=== PATIENT | female | born 1990 | race Caucasian/White ===

== ENCOUNTER 2016-09-12 12:06 | Emergency (ER) | payer OTHER ==
[~2016-09-12] VITALS: Ht 165.1 cm; Wt 65.8 kg
[~2016-09-12 12:06] MED LIST: CALCTAB5 PO; CHOL100010 PO; METH10TA6 PO; POTA8CAP6 PO; SELE1TAB5 PO
[2016-09-12 12:08] VITALS: TEMP 37.3; Ht 165.1 cm; Wt 65.8 kg
[2016-09-12] MEDS ORDERED: KETOROLAC TROMETHAMINE 30 MG/ML VIAL IV STA (12:28)
[2016-09-12] MEDS ORDERED: DiphenhydrAMINE HCL 50 MG/ML VIAL IV STA (12:28)
[2016-09-12] MEDS ORDERED: PROCHLORPERAZINE 5 MG/ML 2 ML VIAL IV STA (12:28)
[2016-09-12] MEDS ORDERED: SODIUM CHLORIDE 0.9% 1000ML 1,000 ML IV STA (12:28)
--- NOTE | 2016-09-12 12:28 | EMERGENCY ROOM VISIT NOTE ---
History Report prepared by Shayan: Kavin Lucas Under the Supervision of: Dr. Emory Guan M.D. First contact with patient: 12:15 Chief Complaint: ILLNESS Stated Complaint: BLURRY VISION/EYE FLUTTERS/SPACE OUT PAIN IN CHEST History of Present Illness The patient is a 26 year old female who presents to the Emergency Room with complaints of intermittent vision changes for a month. The patient has been experiencing what she calls "black floaters" in her right eye's vision. She has also been feeling very "spaced out." She has been having some left arm pain, neck pain, and nausea as well. The patient has a history of migraines. She claims that this does not feel like her normal migraine symptoms. She denies any fevers or rashes. She denies spending a significant amount of time outdoors. Source of History: patient Onset: a month ago Position: eye (right) Symptom Intensity: moderate Quality: other (Black Dots in Vision) Timing: intermittent Associated Symptoms: + nausea, + neck pain, No fevers, No rash Note: She is having left arm pain. Review of Systems See HPI for pertinent positives & negatives. A total of 10 systems reviewed and were otherwise negative. Past Medical & Surgical Medical Problems: (1) Urinary tract infection Family History Patient reports no known family medical history. Social History Smoking Status: Current Every Day Smoker Alcohol Use: occasionally Drug Use: marijuana Marital Status: , in relationship Housing Status: lives with family Occupation Status: unemployed Current/Historical Medications Scheduled Calcium (Caltrate), 600 MG PO DAILY Cholecalciferol (Vitamin D), 1,000 INTER.UNIT PO DAILY Methimazole (Methimazole), 2.5 MG PO DAILY Potassium Chloride (Klor-Con Ext Rel), Unknown Dose PO DAILY Selenium-Yeast (Selenium), 1 TAB PO DAILY Sulfa/Trimethoprim (Bactrim Ds 800MG/160MG), 1 TAB PO BID Allergies Coded Allergies: No Known Allergies (Unverified , 09/12/16) Physical Exam Vital Signs Date Time Temp Pulse Resp B/P Pulse Ox O2 Delivery O2 Flow Rate FiO2 09/12/16 14:57 85 18 103/68 99 Room Air 09/12/16 14:08 87 18 110/69 98 Room Air 09/12/16 13:09 99 Room Air 09/12/16 13:09 126 09/12/16 12:08 37.3 97 18 145/87 97 Room Air Physical Exam GENERAL: Patient is a healthy-appearing well-nourished HEAD: Normocephalic atraumatic EYES: Ocular movements intact pupils equal and react to light OROPHARYNX mucous membranes are moist no exudates present no erythema or edema present NECK: Supple no nuchal rigidity CHEST: Good equal expansion LUNGS: Clear and equal to auscultation CARDIAC: Normal S1 and S2 ABDOMEN: Soft nontender no guarding BACK: No CVA tenderness EXTREMITIES: No pain upon palpation normal muscle strength in all groups no clubbing cyanosis or edema NEURO: Patient is following commands is answering questions appropriately. Alert and oriented x3 Cranial Nerves 2-12 grossly intact Medical Decision & Procedures ER Provider Diagnostic Interpretation: Radiology results are stated below per my review and radiologist interpretation: CT HEAD WITHOUT CONTRAST (CT) CLINICAL HISTORY: Left-sided headache COMPARISON STUDY: No previous studies for comparison. TECHNIQUE: Axial CT of the brain is performed from the vertex to the skull base. IV contrast was not administered for this examination. CT DOSE: 537.48 mGy.cm FINDINGS: No intra or extra-axial mass lesions are visualized. There is no CT evidence of acute cortical infarction. There is no evidence of midline shift. There is no acute hemorrhage. No calvarial fractures are visualized. There is no evidence of pathologic ventricular dilatation. There is no evidence of acute sinusitis IMPRESSION: Normal noncontrast head CT. Electronically signed by: Oli Vivas M.D. 09/12/2016 1:22 PM Dictated Date/Time: 09/12/2016 1:20 PM Laboratory Results 09/12/16 13:00 Red Blood Count 4.83, Mean Corpuscular Volume 88.2, Mean Corpuscular Hemoglobin 31.7, Mean Corpuscular Hemoglobin Concent 35.9, Mean Platelet Volume 10.8, Neutrophils (%) (Auto) 65.7, Lymphocytes (%) (Auto) 26.3, Monocytes (%) (Auto) 6.6, Eosinophils (%) (Auto) 0.9, Basophils (%) (Auto) 0.2, Neutrophils # (Auto) 4.27, Lymphocytes # (Auto) 1.71, Monocytes # (Auto) 0.43, Eosinophils # (Auto) 0.06, Basophils # (Auto) 0.01 09/12/16 13:00 Test 1/14/17 13:00 White Blood Count 6.50 K/uL (4.8-10.8) Red Blood Count 4.83 M/uL (4.2-5.4) Hemoglobin 15.3 g/dL (12.0-16.0) Hematocrit 42.6 % (37-47) Mean Corpuscular Volume 88.2 fL (80-100) Mean Corpuscular Hemoglobin 31.7 pg (25-34) Mean Corpuscular Hemoglobin Concent 35.9 g/dl (32-36) Platelet Count 217 K/uL (130-400) Mean Platelet Volume 10.8 fL (7.4-10.4) Neutrophils (%) (Auto) 65.7 % Lymphocytes (%) (Auto) 26.3 % Monocytes (%) (Auto) 6.6 % Eosinophils (%) (Auto) 0.9 % Basophils (%) (Auto) 0.2 % Neutrophils # (Auto) 4.27 K/uL (1.4-6.5) Lymphocytes # (Auto) 1.71 K/uL (1.2-3.4) Monocytes # (Auto) 0.43 K/uL (0.11-0.59) Eosinophils # (Auto) 0.06 K/uL (0-0.5) Basophils # (Auto) 0.01 K/uL (0-0.2) RDW Standard Deviation 38.0 fL (36.4-46.3) RDW Coefficient of Variation 11.9 % (11.5-14.5) Immature Granulocyte % (Auto) 0.3 % Immature Granulocyte # (Auto) 0.02 K/uL (0.00-0.02) Urine Color DK YELLOW Urine Appearance CLEAR (CLEAR) Urine pH 5.5 (4.5-7.5) Urine Specific [place] 1.032 (1.000-1.030) Urine Protein NEG (NEG) Urine Glucose (UA) NEG (NEG) Urine Ketones TRACE (NEG) Urine Occult Blood NEG (NEG) Urine Nitrite NEG (NEG) Urine Bilirubin NEG (NEG) Urine Urobilinogen NEG (NEG) Urine Leukocyte Esterase TRACE (NEG) Urine WBC (Auto) 5-10 /hpf (0-5) Urine RBC (Auto) 0-4 /hpf (0-4) Urine Hyaline Casts (Auto) 1-5 /lpf (0-5) Urine Epithelial Cells (Auto) >30 /lpf (0-5) Urine Bacteria (Auto) 1+ (NEG) Urine Test NEG (NEG) Anion Gap 10.0 mmol/L (3-11) Est Creatinine Clear Calc Drug Dose 82.2 ml/min Estimated GFR () 97.2 Estimated GFR (Non- 83.8 BUN/Creatinine Ratio 14.7 (10-20) Calcium Level 9.1 mg/dl (8.5-10.1) Total Bilirubin 0.9 mg/dl (0.2-1) Direct Bilirubin 0.2 mg/dl (0-0.2) Aspartate Amino Transf (AST/SGOT) 13 U/L (15-37) Alanine Aminotransferase (ALT/SGPT) 22 U/L (12-78) Alkaline Phosphatase 46 U/L (45-117) Total Protein 7.9 gm/dl (6.4-8.2) Albumin 4.6 gm/dl (3.4-5.0) Lyme Disease IgG Antibody NEG (NEG) Lyme Disease IgM Antibody NEG (NEG) Monoscreen NEG (NEG) Labs reviewed by ED physician. Medications Administered Medications (Trade) Dose Ordered Sig/Devan Route Start Time Stop Time Status Last Admin Dose Admin Sodium Chloride (Nss 1000ml) 1,000 ml @ 999 mls/hr Q1H1M STAT IV 09/12/16 12:28 09/12/16 13:28 DC 09/12/16 12:49 999 MLS/HR Ketorolac Tromethamine (Toradol Inj) 30 mg NOW STAT IV 09/12/16 12:28 09/12/16 12:31 DC 09/12/16 12:47 30 MG Prochlorperazine Edisylate (Compazine Inj) 5 mg NOW STAT IV 09/12/16 12:28 09/12/16 12:31 DC 09/12/16 12:47 5 MG Diphenhydramine HCl (Benadryl Inj) 50 mg NOW STAT IV 09/12/16 12:28 09/12/16 12:31 DC 09/12/16 12:47 50 MG Dexamethasone Sodium Phosphate (Decadron Inj) 10 mg NOW ONCE IV 09/12/16 12:30 09/12/16 12:31 DC 09/12/16 12:48 10 MG Ceftriaxone Sodium (Rocephin Inj) 1 gm NOW STAT IV 09/12/16 13:21 09/12/16 13:23 DC 09/12/16 14:03 1 GM Trimethoprim/ Sulfamethoxazole (Septra Ds 800/ 160MG Tab) 1 tab NOW STAT PO 09/12/16 13:21 09/12/16 13:23 DC 09/12/16 14:03 1 TAB ED Course 1215: Past medical records reviewed. The patient was evaluated in room B4. A complete history and physical examination was performed. 1228: Benadryl Inj 50 mg IV, Compazine Inj 5 mg IV, Toradol Inj 30 mg IV, Sodium Chloride 1000 ml @ 999 mls/hr 1230: Decadron Inj 10 mg IV 1321: Trimethoprim/ Sulfamethoxazole 1 tab PO, Rocephin Inj 1 gm IV 1405: Upon reexamination the patient is resting comfortably. I discussed results and treatment plan with the patient. She verbalizes agreement and understanding. The patient is ready for discharge. Medical Decision Etiologies such as migraine headache, meningitis, sinusitis, CO exposure, ICH, SAH, infection, tumor, headache, sinus thrombosis, arterial dissection, as well as others were entertained. This is a healthy-appearing 26-year-old female who presents emergency department with what appears to be complaints of an ocular migraine. The patient reports that the symptoms have been ongoing for the past month. For this reason she was given normal saline bolus, Toradol, Compazine, Benadryl. Repeat examination revealed much improvement the patient's symptoms. The patient has normal CBC normal renal profile normal liver profile. She is not . CAT scan of her head does not reveal any evidence of acute process. I believe the patient as well as to be discharged home for follow-up with neurology. Patient was in agreement with the treatment plan. Impression Primary Impression: Urinary tract infection Additional Impression: Head pain Scribe Attestation The scribe's documentation has been prepared under my direction and personally reviewed by me in its entirety. I confirm that the note above accurately reflects all work, treatment, procedures, and medical decision making performed by me. Departure Information Dispostion Home / Self-Care Prescriptions Sulfa/Trimethoprim (Bactrim Ds 800MG/160MG) Tab 1 TAB PO BID for 7 Days, #14 TAB Prov: Emory Guan MD 09/12/16 Referrals No Doctor, Assigned (PCP) Sadie Kelly D.O. Forms HOME CARE DOCUMENTATION FORM, IMPORTANT VISIT INFORMATION, WORK / SCHOOL INSTRUCTIONS Patient Instructions Headache Pain, My [facility], Urinary Tract Infection - [facility] Additional Instructions Follow up with DR Boyer's office You have been examined and treated today on an emergency basis only. This is not a substitute for, or an effort to provide, complete comprehensive medical care. It is impossible to recognize and treat all injuries or illnesses in a single emergency department visit. It is therefore important that you follow up closely with your PCP. Call as soon as possible for an appointment. Thank you for your time and consideration. I look forward to speaking with you again soon. Please don't hesitate to call us if you have any questions. Problem Qualifiers Primary Impression: Urinary tract infection Urinary tract infection type: acute cystitis Hematuria presence: without hematuria Qualified Codes: N30.00 - Acute cystitis without hematuria Additional Impression: Head pain Headache type: unspecified Headache chronicity pattern: acute headache Intractability: not intractable Qualified Codes: R51 - Headache
[2016-09-12] MEDS ORDERED: DEXAMETHASONE SOD INJ 10 MG/ML VIAL IV ONE (12:30)
[2016-09-12 13:09] VITALS: O2SAT 99
[2016-09-12 13:09] LABS: BASO % 0.2 %; BASO ABS # 0.01 K/uL (0-0.2); COMPLETE YES; EOS % 0.9 %; HEMATOCRIT 42.6 % (37-47); IG% 0.3 %; LYMPH % 26.3 %; LYMPH ABS # 1.71 K/uL (1.2-3.4); MEAN CELL VOLUME 88.2 fL (80-100); MEAN CORPUSCULAR HEMOGLOBIN 31.7 pg (25-34); MEAN CORPUSCULAR HGB CONC 35.9 g/dl (32-36); MEAN PLATELET VOLUME 10.8 fL (7.4-10.4); MONO % 6.6 %; NEUT % 65.7 %; PLATELET COUNT 217 K/uL (130-400); RED BLOOD COUNT 4.83 M/uL (4.2-5.4)
[2016-09-12 13:15] LABS: URINE APPEARANCE CLEAR (CLEAR); URINE BILIRUBIN NEG (NEG); URINE COLOR DK YELLOW; URINE EPITHELIAL CELL AUTO >30 /lpf (0-5); URINE NITRITE NEG (NEG); URINE PH 5.5 (4.5-7.5); URINE SPECIFIC GRAVITY 1.032 (1.000-1.030); UROBILINOGEN NEG (NEG)
[2016-09-12 13:16] LABS: MANUAL MICROSCOPIC REQUIRED? NO; REVIEW REQ? NO
[2016-09-12] MEDS ORDERED: CEFTRIAXONE SOD INJ 1 GM ADDVIAL IV STA (13:21)
[2016-09-12] MEDS ORDERED: SULFAMETHOXAZOLE/TRIMETHOPRIM DS 800/160MG TAB PO STA (13:21)
[2016-09-12 13:24] LABS: CREATININE 0.95 mg/dl (0.60-1.20)
--- NOTE | 2016-09-12 13:24 | DIAGNOSTIC IMAGING REPORT ---
CT HEAD WITHOUT CONTRAST (CT) CLINICAL HISTORY: Left-sided headache COMPARISON STUDY: No previous studies for comparison. TECHNIQUE: Axial CT of the brain is performed from the vertex to the skull base. IV contrast was not administered for this examination. CT DOSE: 537.48 mGy.cm FINDINGS: No intra or extra-axial mass lesions are visualized. There is no CT evidence of acute cortical infarction. There is no evidence of midline shift. There is no acute hemorrhage. No calvarial fractures are visualized. There is no evidence of pathologic ventricular dilatation. There is no evidence of acute sinusitis IMPRESSION: Normal noncontrast head CT. Electronically signed by: Oli Vivas M.D. 09/12/2016 1:22 PM Dictated Date/Time: 09/12/2016 1:20 PM
[2016-09-12 13:25] LABS: BUN/CREATININE RATIO 14.7 (10-20); CALCIUM 9.1 mg/dl (8.5-10.1); POTASSIUM 3.6 mmol/L (3.5-5.1)
[2016-09-12] MEDS ORDERED: SULF800T23 PO (14:03)
[2016-09-12 14:17] LABS: LYME DISEASE AB IGG NEG (NEG)
[2016-09-12 14:18] LABS: LYME DISEASE AB IGM NEG (NEG)
[2016-09-12 14:57] VITALS: BP 103/68; PULSE 85; O2SAT 99
[2016-09-15 17:59] LABS: EBV EARLY ANTIGEN AB <0.91 INDEX; EPSTEIN BARR VIR CAPSID IGG 4.99 INDEX
== END 2016-09-12 15:13 | disposition home or self-care (01) ==
LOC: C.EDB 12:07
DX: N30.00 Acute cystitis without hematuria (principal); F17.210 Nicotine dependence, cigarettes, uncomplicated; R51 Headache

== ENCOUNTER → 2017-11-04 | Outpatient (CLI) | payer OTHER ==
[2017-11-04 16:38] LABS: BASO % 0.1 %; BASO ABS # 0.01 K/uL (0-0.2); EOS % 0.8 %; EOS ABS # 0.06 K/uL (0-0.5); HEMATOCRIT 37.8 % (37-47); HEMOGLOBIN 13.2 g/dL (12.0-16.0); IG# 0.01 K/uL (0.00-0.02); LYMPH % 29.9 %; LYMPH ABS # 2.25 K/uL (1.2-3.4); MEAN CELL VOLUME 87.3 fL (80-100); MEAN CORPUSCULAR HEMOGLOBIN 30.5 pg (25-34); MEAN CORPUSCULAR HGB CONC 34.9 g/dl (32-36); MEAN PLATELET VOLUME 10.1 fL (7.4-10.4); MONO % 6.8 %; MONO ABS # 0.51 K/uL (0.11-0.59); NEUT % 62.3 %; NEUT ABS # 4.68 K/uL (1.4-6.5); PLATELET COUNT 226 K/uL (130-400); RED CELL DISTRIBUTION WIDTH SD 38.4 fL (36.4-46.3); WHITE BLOOD COUNT 7.52 K/uL (4.8-10.8)
== END | disposition home or self-care (01) ==
LOC: C.LAB1850 15:24
PROVIDERS: ATTEND Obstetrics & Gynecology
DX: Z34.81 Encounter for supervision of other normal pregnancy, first trimester (principal)

== ENCOUNTER 2017-11-15 00:41 | Emergency (ER) | payer OTHER ==
[~2017-11-15] VITALS: Ht 165.1 cm; Wt 64.4 kg
[2017-11-15 00:45] VITALS: TEMP 36.8; Ht 165.1 cm; Wt 64.4 kg
[2017-11-15] MEDS ORDERED: PRENTAB26 PO (01:12)
[2017-11-15] MEDS ORDERED: CHOL1000 PO (01:12)
[2017-11-15] MEDS ORDERED: OMEG10007 PO (01:12)
[2017-11-15] MEDS ORDERED: CALC-20 PO (01:12)
[2017-11-15] MEDS ORDERED: LEVO75TA5 PO (01:12)
[2017-11-15] MEDS ORDERED: MAGN250T3 PO (01:12)
[2017-11-15] MEDS ORDERED: ONDANSETRON INJ 2 MG/ML 2 ML VIAL IV STA (01:34)
[2017-11-15] MEDS ORDERED: SODIUM CHLORIDE 0.9% 1000ML 1,000 ML IV ONE ×2 (01:45)
[2017-11-15 02:00] LABS: BASO % 0.1 %; BASO ABS # 0.01 K/uL (0-0.2); EOS % 0.4 %; EOS ABS # 0.03 K/uL (0-0.5); HEMATOCRIT 33.9 % (37-47); HEMOGLOBIN 12.2 g/dL (12.0-16.0); IG# 0.01 K/uL (0.00-0.02); LYMPH % 41.4 %; LYMPH ABS # 2.84 K/uL (1.2-3.4); MEAN CELL VOLUME 85.4 fL (80-100); MEAN CORPUSCULAR HEMOGLOBIN 30.7 pg (25-34); MEAN PLATELET VOLUME 9.6 fL (7.4-10.4); MONO % 6.9 %; MONO ABS # 0.47 K/uL (0.11-0.59); NEUT % 51.1 %; PLATELET COUNT 212 K/uL (130-400); RED CELL DISTRIBUTION WIDTH CV 12.1 % (11.5-14.5); RED CELL DISTRIBUTION WIDTH SD 37.4 fL (36.4-46.3); WHITE BLOOD COUNT 6.86 K/uL (4.8-10.8)
[2017-11-15 02:17] LABS: BLOOD UREA NITROGEN 9 mg/dl (7-18); CREATININE 0.56 mg/dl (0.60-1.20); GLUCOSE 87 mg/dl (70-99)
[2017-11-15 02:18] LABS: ALBUMIN 3.5 gm/dl (3.4-5.0); ALT/SGPT 15 U/L (12-78); AST/SGOT 9 U/L (15-37); CALCIUM 8.6 mg/dl (8.5-10.1); CARBON DIOXIDE 24 mmol/L (21-32); POTASSIUM 3.5 mmol/L (3.5-5.1); SODIUM 138 mmol/L (136-145)
[2017-11-15 02:20] LABS: ALKALINE PHOSPHATASE 41 U/L (45-117); TOTAL PROTEIN 6.8 gm/dl (6.4-8.2)
[2017-11-15] MEDS ORDERED: ONDANSETRON HOME PACK 4MG OD TAB PO ONE (02:45)
[2017-11-15] MEDS ORDERED: ONDA4TAB10 SL (02:48)
[2017-11-15 03:00] VITALS: BP 116/72; PULSE 80; O2SAT 98
--- NOTE | 2017-11-16 20:55 | EMERGENCY ROOM VISIT NOTE ---
History First contact with patient: 01:24 Chief Complaint: DEHYDRATION Stated Complaint: DEHYDRATION,HEADACHES Nursing Triage Summary: Pt complains of nausea and vomiting for a month. Pt reports she is 10 weeks . Pt also complains of being tired and headache. History of Present Illness The patient is a 27 year old female who presents to the Emergency Room with complaints of nausea and vomiting symptoms for the past 3-4 weeks. The patient states that she is 10 weeks with her second . She did not have these symptoms with her first . She states her symptoms worsened today as she is also complaining of significant fatigue and a new onset headache. The patient has mentioned this to [facility], but has not been medicated for this previously. The patient does not have chest pain, chest tightness, shortness of breath, or abdominal pain. No vaginal drainage or discharge. She considers herself otherwise usually healthy. Review of Systems More than 10 systems were reviewed and otherwise negative with the exception of history of present illness. Past Medical/Surgical History Medical Problems: (1) Urinary tract infection Family History Patient reports no known family medical history. Social History Smoking Status: Never Smoker Alcohol Use: occasionally Drug Use: marijuana Marital Status: , in relationship Housing Status: lives with family Occupation Status: unemployed Current/Historical Medications Scheduled Calcium Carbonate-Vitamin D (Calcium 600 + D), 1 TAB PO DAILY Cholecalciferol (Vitamin D3), 1 TAB PO DAILY Fish Oil ([place]-3), 1 CAP PO DAILY Levothyroxine Sodium (Levothyroxine Sodium), 75 MCG PO DAILY Magnesium (Magnesium 250 mg), 250 MG PO DAILY Multivit/Min/Iron/Fol Ac/Pren ( Vitamin), 1 TAB PO DAILY Ondasetron Odt (Zofran Odt), 4 MG SL Q6H Physical Exam Vital Signs Date Time Temp Pulse Resp B/P (MAP) Pulse Ox O2 Delivery O2 Flow Rate FiO2 11/15/17 03:00 80 20 116/72 98 11/15/17 01:59 76 16 119/78 99 Room Air 11/15/17 00:45 36.8 78 18 122/77 97 Room Air Physical Exam VITALS: Vitals are noted on the nurse's note and reviewed by myself. Vital signs stable. GENERAL: Well-developed, well-nourished, white female, who is in no acute distress and resting comfortably. Patient is cooperative with the examination. MOUTH: Mucous membranes moist. Tonsils are not enlarged. Pharynx without erythema, blood, or exudate. Uvula midline. Airway patent. NECK: Supple without nuchal rigidity. No lymphadenopathy. No thyromegaly. Cervical spine is nontender. HEART: Regular rate and rhythm without murmurs gallops or rubs. LUNGS: Clear to auscultation bilaterally without wheezes, rales or rhonchi. No retractions or accessory muscle use. ABDOMEN: Positive normal bowel sounds x 4. Soft, nontender, without masses or organomegaly. No guarding or rebound tenderness. Medical Decision & Procedures Laboratory Results 11/15/17 01:40 Red Blood Count 3.97, Mean Corpuscular Volume 85.4, Mean Corpuscular Hemoglobin 30.7, Mean Corpuscular Hemoglobin Concent 36.0, Mean Platelet Volume 9.6, Neutrophils (%) (Auto) 51.1, Lymphocytes (%) (Auto) 41.4, Monocytes (%) (Auto) 6.9, Eosinophils (%) (Auto) 0.4, Basophils (%) (Auto) 0.1, Neutrophils # (Auto) 3.50, Lymphocytes # (Auto) 2.84, Monocytes # (Auto) 0.47, Eosinophils # (Auto) 0.03, Basophils # (Auto) 0.01 11/15/17 01:40 Test 11/15/17 01:40 White Blood Count 6.86 K/uL (4.8-10.8) Red Blood Count 3.97 M/uL (4.2-5.4) Hemoglobin 12.2 g/dL (12.0-16.0) Hematocrit 33.9 % (37-47) Mean Corpuscular Volume 85.4 fL (80-100) Mean Corpuscular Hemoglobin 30.7 pg (25-34) Mean Corpuscular Hemoglobin Concent 36.0 g/dl (32-36) Platelet Count 212 K/uL (130-400) Mean Platelet Volume 9.6 fL (7.4-10.4) Neutrophils (%) (Auto) 51.1 % Lymphocytes (%) (Auto) 41.4 % Monocytes (%) (Auto) 6.9 % Eosinophils (%) (Auto) 0.4 % Basophils (%) (Auto) 0.1 % Neutrophils # (Auto) 3.50 K/uL (1.4-6.5) Lymphocytes # (Auto) 2.84 K/uL (1.2-3.4) Monocytes # (Auto) 0.47 K/uL (0.11-0.59) Eosinophils # (Auto) 0.03 K/uL (0-0.5) Basophils # (Auto) 0.01 K/uL (0-0.2) RDW Standard Deviation 37.4 fL (36.4-46.3) RDW Coefficient of Variation 12.1 % (11.5-14.5) Immature Granulocyte % (Auto) 0.1 % Immature Granulocyte # (Auto) 0.01 K/uL (0.00-0.02) Anion Gap 8.0 mmol/L (3-11) Est Creatinine Clear Calc Drug Dose 138.2 ml/min Estimated GFR () > 150.0 Estimated GFR (Non- 129.6 BUN/Creatinine Ratio 16.7 (10-20) Calcium Level 8.6 mg/dl (8.5-10.1) Total Bilirubin 0.3 mg/dl (0.2-1) Aspartate Amino Transf (AST/SGOT) 9 U/L (15-37) Alanine Aminotransferase (ALT/SGPT) 15 U/L (12-78) Alkaline Phosphatase 41 U/L (45-117) Total Protein 6.8 gm/dl (6.4-8.2) Albumin 3.5 gm/dl (3.4-5.0) Globulin 3.3 gm/dl (2.5-4.0) Albumin/Globulin Ratio 1.1 (0.9-2) Medications Administered Medications (Trade) Dose Ordered Sig/Devan Route Start Time Stop Time Status Last Admin Dose Admin Sodium Chloride 1,000 ml @ 999 mls/hr Q1H1M ONCE IV 11/15/17 01:45 11/15/17 02:45 DC 11/15/17 01:45 999 MLS/HR Sodium Chloride 1,000 ml @ 999 mls/hr Q1H1M ONCE IV 11/15/17 01:45 11/15/17 02:45 DC 11/15/17 01:45 999 MLS/HR Ondansetron HCl (ZOFRAN ODT 4MG Home Pack) 1 homepack UD ONCE PO 11/15/17 02:45 11/15/17 02:46 DC 11/15/17 02:55 1 [facility] ED Course Physical exam and history were performed. Nursing notes, EMR, and Medication List were personally reviewed. Patient appears to have nausea and vomiting in the context of . This is been going on for several weeks but appears to be worse the past 1-2 days. IV access was established and labs were obtained. The patient was hydrated and medicated as above. The patient's blood work is as above and was reviewed. She does not have a significantly elevated white blood cell count, gross anemia, bandemia, or significant electrolyte imbalance. Transaminases are not diagnostic. On reevaluation the patient had significant improvement of her symptoms and is feeling well for discharge home. I will provide the patient a short course of Zofran to use if needed. She was otherwise asked to follow with her [facility] and invited back to the ER with any new, worsening, or concerning symptoms. The chart was completed utilizing [employer] Speech Voice Recognition Software. Grammatical errors, random word insertions, pronoun errors, and incomplete sentences are an occasional consequence of this system due to software limitations, ambient noise, and hardware issues. Any formal questions or concerns about the content, text, or information contained within the body of this dictation should be directly addressed to the provider for clarification. . Medical Decision Differential diagnosis: Etiologies such as gastroenteritis, food borne illness, infections, appendicitis , diverticulitis, inflammatory bowel disease, obstruction, GI bleed, biliary pathology, as well as others were entertained. Impression Primary Impression: Nausea and vomiting during prior to 22 weeks gestation Departure Information Dispostion Home / Self-Care Condition GOOD Prescriptions Ondasetron Odt (ZOFRAN ODT) 4 Mg Tab 4 MG SL Q6H for Nausea, #12 TAB Prov: Ovi Vasquez PA-C 11/15/17 Forms HOME CARE DOCUMENTATION FORM, IMPORTANT VISIT INFORMATION Patient Instructions My [facility] Additional Instructions You were seen and evaluated today on an emergency basis only. This is not a substitute for, or an effort to provide, complete comprehensive medical care. It is not possible to recognize and treat all injuries or illnesses in a single emergency department visit. For this reason it is recommended that you followup with [facility] for ongoing care and evaluation. Zofran 4 mg ODT: Dissolve 1 tablet every 6 hrs as needed for nausea. You are welcome to return to the emergency department anytime with new, worsening, or concerning symptoms.
== END 2017-11-15 03:03 | disposition home or self-care (01) ==
LOC: C.EDB 00:42 → C.EDA 03:03
DX: O21.9 Vomiting of pregnancy, unspecified (principal); Z3A.00 Weeks of gestation of pregnancy not specified; F12.90 Cannabis use, unspecified, uncomplicated; Z87.440 Personal history of urinary (tract) infections

== ENCOUNTER → 2017-12-24 | Outpatient (CLI) | payer OTHER ==
[~2017-12-24] MED LIST changes: +CALC-20 PO; -CALCTAB5 PO; +CHOL1000 PO; -CHOL100010 PO; +LEVO75TA5 PO; +MAGN250T3 PO; -METH10TA6 PO; +OMEG10007 PO; +ONDA4TAB10 SL; -POTA8CAP6 PO; +PRENTAB26 PO; -SELE1TAB5 PO
== END | disposition home or self-care (01) ==
LOC: C.LAB1850 14:58
PROVIDERS: ATTEND Obstetrics & Gynecology
DX: Z34.82 Encounter for supervision of other normal pregnancy, second trimester (principal)

== ENCOUNTER → 2018-03-18 | Outpatient (CLI) | payer OTHER ==
[2018-03-18 12:13] LABS: HEMATOCRIT 33.5 % (37-47); HEMOGLOBIN 11.4 g/dL (12.0-16.0)
== END | disposition home or self-care (01) ==
LOC: C.LAB1850 09:49
PROVIDERS: ATTEND Obstetrics & Gynecology
DX: Z34.83 Encounter for supervision of other normal pregnancy, third trimester (principal); O99.280 Endocrine, nutritional and metabolic diseases complicating pregnancy, unspecified trimester

== ENCOUNTER → 2018-03-25 | Outpatient (CLI) | payer OTHER | END | disposition home or self-care (01) | LOC: C.LAB1850 07:17 | PROVIDERS: ATTEND Obstetrics & Gynecology | DX: O28.1 Abnormal biochemical finding on antenatal screening of mother (principal) ==

== ENCOUNTER 2020-08-09 07:44 | Inpatient (IN) ==
[2020-08-09] MEDS ORDERED: OXYTOCIN 30 UNITS/500 ML BAG IV PRN ×2 (08:49)
[2020-08-09] MEDS ORDERED: PENICILLIN G POTASSIUM 3 MU in DEXTROSE 5% 100 ML IV PRN (08:49)
[2020-08-09] MEDS ORDERED: LACTATED RINGER'S 1,000 ML IV PRN (08:49)
[2020-08-09] MEDS ORDERED: PENICILLIN G POTASSIUM 6 MU in DEXTROSE 5% 250 ML IV ONE (09:00)
[2020-08-09 09:18] LABS: Hematocrit (blood only) 34.5 % (37-47); Mean Corpuscular Hemoglobin 32.4 pg (25-34); Mean Corpuscular Hgb Conc 34.8 g/dL (32-36); Mean Corpuscular Volume 93.2 fL (80-100); Mean Platelet Volume 10.2 fL (7.4-10.4); Platelet Count 158 K/uL (130-400); RDW Standard Deviation 47.2 fL (36.4-46.3); White Blood Count 8.37 K/uL (4.8-10.8)
--- NOTE | 2020-08-09 11:06 | History & Physical Report ---
Date of Service August 09, 2020 Assessment & Plan (1) Post-term , 40-42 weeks of gestation: Aidan Escobar is a 30 y/o female currently at 41+0 WGA with an YING 08/02/2020 as determined by ultrasound who is here for induction. Her was complicated by diet-controlled gDM. Plan: -admit to L&D -pitocin per protocol -penicillin IV when indicated -AROM when indicated -anticipate -A pos / RI / GBS pos / covid neg Admission and Anticipated Discharge Date Admission Date: August 09, 2020 History of Present Illness Primary Care Provider: Telly Rivers Aidan Escobar is a 30 y/o female currently at 41+0 WGA with an YING 08/02/2020 as determined by ultrasound who is here for induction. Her was complicated by diet-controlled gDM. Irregular contractions; + movement; - fluid loss; - bloody show Had regular appointments with OB. Blood type: A positive Antibody screen: negative Rubella: immune VDRL/RPR: nonreactive Gonorrhea: negative Chlamydia: negative HIV: negative HbSAg: negative GBS: positive (07/08/2020) COVID-19 negative (07/29/2020) Allergies Allergy/AdvReac Type Severity Reaction Status Date / Time ethinyl estradiol Allergy Severe Hives Verified 08/08/20 09:19 [From NuvaRing] etonogestrel [From NuvaRing] Allergy Severe Hives Verified 08/08/20 09:19 Home Medications Medication Instructions Recorded Confirmed Type PNV cmb#95-ferrous fumarate-FA 1 tab PO QAM 08/26/18 08/09/20 History [] magnesium 250 mg PO PM 08/26/18 08/09/20 History omega 5-yfn-bze-fish oil [Fish Oil] 1 cap PO QAM 08/26/18 08/09/20 History calcium carbonate-vitamin D3 1 tab PO PM 05/02/19 08/09/20 History [Calcium 600 + D(3)] cholecalciferol (vitamin D3) 1,000 unit PO QAM 05/02/19 08/09/20 History [Vitamin D3] lorazepam 0.5 mg PO BID PRN 07/07/19 08/09/20 History blood sugar diagnostic #400 ea 02/23/20 08/08/20 Rx blood-glucose meter #1 ea 02/23/20 08/08/20 Rx lancets 33 gauge #400 ea 02/23/20 08/08/20 Rx acetone (urine) test #50 ea 07/08/20 08/08/20 Rx levothyroxine 112 mcg tablet 50 mcg PO QAM tab 07/29/20 08/09/20 History Past Med/Surg History Medical History (Updated 08/09/20 @ 07:59 by Laura Ramirez RN) Anxiety Anxiety Chlamydia 2011 Depression Encounter for anatomic survey Gestational diabetes Diet-controlled Graves disease Heart palpitations "RELATED MY THYROID" Hx of varicella Hypothyroidism graves disease Kidney stone PASSED Low lying placenta without hemorrhage, antepartum Nausea and vomiting after administration of anesthetic agent Tobacco abuse Quit smoking 3 years ago Surgical History (Updated 12/15/19 @ 08:53 by Sheri Perez) History of tonsillectomy and adenoidectomy [place] teeth extracted Family History Grandmother (Maternal) Stroke Mother Melanoma Social History Smoking Status: Former smoker Second Hand Exposure: No; Hx Alcohol Use: Yes Alcohol type: beer and wine Hx Substance Use: No Preferred Language: Greek Communication Ability: Effective Top Knitter Required: No Beliefs That Will Affect Care: None marital status: marital status details: Angus Metcalf (27) [phone] Current Living Situation: Spouse Current Living Situation Comment: lives with spouse and children, 3 dogs, 1 cat, does not change litter current occupational status: employed current occupation: [employer] Other Information That Helps Us Care for You: No Feels Safe at Home: Yes Safety Concerns: Feels Safe At This Time Assistive Devices: Glasses Review of Systems Review of Systems: Denies fever or chills. Denies shortness of breath or cough. Denies chest pain. Denies breast pain. Denies dysuria or hematuria. Denies leg pain or leg swelling. Denies headache or changes in vision. Physical Exam Physical Exam: General: Alert, oriented. No acute distress. Cardiac: Regular rate and rhythm, no murmurs/rubs/gallops. Respiratory: Clear to auscultation bilaterally a/p, no wheezes/rales/rhonchi. No increased work of breathing. Symmetrical chest rise. No respiratory distress. Abdomen: Gravid. + heart tones. Pelvic: see attending documentation External FHT and external uterine monitors used; Category 1 tracing. Lower Extremities: No lower extremity edema or swelling. No deep calf pain. Lonnie's negative bilaterally. Results & Data Results & Data ([facility]) Vital Signs (Past 12 Hours) Vital Signs Temp Pulse Resp BP 08/09/20 10:58 68 124/76 08/09/20 10:30 69 127/66 08/09/20 09:09 77 18 112/67 08/09/20 08:02 36.5 C 81 20 120/70 08/09/20 07:55 81 120/70 Laboratory Results Labs at admission today H.0 Hct: 34.5 WBC: 8.37 Plt: 158 Code Status & VTE Plan VTE Prophylaxis Plan VTE Prophylaxis will be ordered: Yes Resident Activity Tracking Resident Involvement: Resident Care Provided Care Provided: OB Delivery
[2020-08-09] MEDS ORDERED: SODIUM CHLORIDE 0.9% INJ 10 ML VIAL ONE (12:46)
[2020-08-09] MEDS ORDERED: ePHEDrine sulfate 50 MG/ML AMP ONE (12:46)
[2020-08-09] MEDS ORDERED: fentaNYL 2MCG/ML ROPIVACAINE 1.25MG/ML 100 ML BAG EPI ONE (12:47)
[2020-08-09] MEDS ORDERED: fentaNYL citrate 100 MCG/2 ML VIAL ONE (12:47)
[2020-08-09] MEDS ORDERED: BUPIVACAINE 0.25% 30 ML VIAL ONE (12:47)
--- NOTE | 2020-08-09 12:58 | Labor Progress Brief Note ---
Date of Service August 09, 2020 Subjective Becoming more uncomfortable. [place] pulido was hanging low. (After this exam, with pulido being removed from vaginal canal, she also experienced SROM and then requested epidural). Assessment & Plan (1) Group beta Strep positive: (2) Post-term , 40-42 weeks of gestation: Continue pitocin. Epidural being requested now. Admission and Anticipated Discharge Date Admission Date: August 09, 2020 Physical Exam Physical Exam: /-2 Pulido out FHT Cat 1 [place] Q2 Results & Data ([facility]) Vital Signs (Past 12 Hours) Vital Signs Temp Pulse Resp BP Pulse Ox 08/09/20 12:53 73 99 08/09/20 11:49 65 129/78 08/09/20 10:58 98.1 F 68 18 124/76 08/09/20 10:30 69 127/66 08/09/20 09:09 77 18 112/67 08/09/20 08:02 97.7 F 81 20 120/70 08/09/20 07:55 81 120/70 Coding Level of Care Code None Diagnoses Group beta Strep positive B95.1 Post-term , 40-42 weeks of gestation O48.0
[2020-08-09] MEDS ORDERED: IBUPROFEN 600 MG TAB PO ONE (13:18)
--- NOTE | 2020-08-09 13:23 | Delivery Summary ---
Vaginal Delivery Summary Date of Service August 09, 2020 Vaginal Delivery Summary DIAGNOSES: 1. Salas intrauterine at 41w0d gestation. 2. Induction of Labor. 3. Group B Streptococcus Pos. PROCEDURE: Spontaneous vaginal delivery without laceration. SURGEON: Juana Alvarez MD. SERVICE LINE COORDINATOR: None. ESTIMATED BLOOD LOSS: 200 mL. COMPLICATIONS: None. PLACENTA: Spontaneous and intact with a 3-vessel cord. DISPOSITION: Stable to labor and delivery. DESCRIPTION: The patient had recently been examined and found to be 6cm, and I was in my call room documenting that exam when my phone rang and the L&D nurses said Юлия was "anterior lip." I saved my note and went directly to L&D. On arrival at the doors of the unit I found nurses in the hallway shouting that baby was already born and crying. I ran the rest of the way to room 5 where Юлия was holding a vigorous and crying at her chest, still attached to umbilical cord with the placenta remaining in the uterus. There was minimal bleeding, no perineal or vaginal lacerations; the Chux under the patient had perhaps a 4" round blood stain. The cord was doubly clamped by the MD and then cut by Юлия herself, as the FOB had a vasovagal episode and passed out in the recliner. He was being attended-to by several of the nurses in the room. The placenta delivered spontaneously and was noted to be intact and with a 3VC. The cervix, vagina and perineum were examined and were found to be without defect requiring repair. The fundus was firm and lochia minimal immediately after delivery. A clean chux was placed under the patient, and she and her infant were doing very well at the time of this dictation. The FOB had also begun to recover with smelling salts and was doing well too. [facility] Vaginal Delivery Charge Vaginal Delivery Codes: 80972 global code for the antepartum, delivery, and post-
[2020-08-09] MEDS ORDERED: HYDROCORTISONE ACETATE 25 MG SUPP PR PRN (13:26)
[2020-08-09] MEDS ORDERED: BENZOCAINE 20% AER SPR 82.5 GM CAN EXT PRN (13:26)
[2020-08-09] MEDS ORDERED: DIPHTHERIA/TETANUS/PERTUSSIS 0.5 ML SYR/VIAL IM ONE (13:26)
[2020-08-09] MEDS ORDERED: SUPERCREAM 0.870% 15 GM JAR EXT PRN (13:26)
[2020-08-09] MEDS ORDERED: oxyCODONE/ACETAMINOPHEN 5mg/325mg TAB PO PRN (13:26)
[2020-08-09] MEDS ORDERED: LORazepam 0.5 MG TAB PO PRN (13:26)
[2020-08-09] MEDS: ACETAMINOPHEN 325 MG TAB PO PRN ×2 (14:25→21:14)
[2020-08-09] MEDS: DOCUSATE SODIUM 100 MG CAP PO SCH (21:02)
[2020-08-10] MEDS: IBUPROFEN 600 MG TAB PO PRN ×2 (00:22→08:34)
[2020-08-10] MEDS: ACETAMINOPHEN 325 MG TAB PO PRN (04:49)
--- NOTE | 2020-08-10 05:18 | Obstetrical Progress Note ---
Date of Service <Aniceto Maharaj MD - Last Filed: 08/10/20 07:06> August 10, 2020 Assessment & Plan <Aniceto Maharaj MD - Last Filed: 08/10/20 07:06> (1) Post-term , 40-42 weeks of gestation: A/P: Aidan Escobar is a 30 y/o female on PPD#1 following at 41+0 weeks. * Patient feels well today; eating well, voiding well, ambulating well * Pain well-controlled with ibuprofen 600mg q4h prn * PNL: Rh pos, RI, GBS neg, COVID neg * Routine postcesarean care: OOB, ambulation, diet progression as tolerated * After discharge, will have six-week follow-up with Dr. Alvarez Subjective <Aniceto Maharaj MD - Last Filed: 08/10/20 07:06> Aidan Escobar is a 30 y/o female on PPD#1 following at 41+0 weeks. She reports feeling well overall this morning. Mild abdominal cramping and 3/10 pain well managed on analgesics. Voiding well. Tolerating meals overnight without difficulty. Patient has been able to ambulate some. Has persistent loc hia with some improvement this morning. Currently . Denies fever or chills. Denies cough or shortness of breath. Denies chest pain. Denies dysuria. Denies leg pain. Denies headache or changes in vision. Physical Exam <Aniceto Maharaj MD - Last Filed: 08/10/20 07:06> General: alert, oriented, no acute distress Cardiac: regular rate and rhythm, no murmurs appreciated Respiratory: lungs clear to auscultation bilaterally a/p, no wheezes/rales/rho nchi, no increased work of breathing, symmetrical chest rise, no respiratory distress Abdomen: soft, minimally tender, nondistended, bowel sounds present Uterus: uterine fundus firm, palpable 4 cm below umbilicus Lower extremities: no lower extremity edema or swelling, no deep calf pain, Lonnie's negative bilaterally Results & Data ([facility]) <Aniceto Maharaj MD - Last Filed: 08/10/20 07:06> Vital Signs (Past 12 Hours) Vital Signs Temp Pulse Resp BP 08/10/20 01:00 36.9 C 69 18 108/68 08/09/20 21:05 36.7 C 63 16 123/79 <Juana Alvarez MD - Last Filed: 08/10/20 07:26> Co-Signing Physician Notes I have reviewed the resident's note and examined the patient myself, and agree with the note above except where it notes "Post care," as this patient had a VAGINAL delivery. She is considering whether to go home today as she is an experienced mom having a normal recovery. D/C instructions given in case. Resident Activity Tracking <Aniceto Maharaj MD - Last Filed: 08/10/20 07:06> Resident Involvement: Resident Care Provided Care Provided: OB Delivery
[2020-08-10] MEDS ORDERED: LEVOTHYROXINE SODIUM 50 MCG TABLET PO SCH (06:30)
[2020-08-10 06:31] LABS: Hematocrit (blood only) 35.6 % (37-47); Hemoglobin 12.1 g/dL (12.0-16.0); Mean Corpuscular Hemoglobin 31.9 pg (25-34); Mean Corpuscular Volume 93.9 fL (80-100); Mean Platelet Volume 10.5 fL (7.4-10.4); Platelet Count 172 K/uL (130-400); RDW Standard Deviation 47.5 fL (36.4-46.3); Red Blood Count 3.79 M/uL (4.2-5.4)
[2020-08-10] MEDS ORDERED: PRENATAL VITAMIN 1 TAB PO SCH (08:00)
[2020-08-10] MEDS: DOCUSATE SODIUM 100 MG CAP PO SCH (08:35)
== END 2020-08-10 16:10 | disposition home or self-care (01) | DRG 807 ==
LOC: 4S1 07:44 → 4S2 15:45